=== PATIENT | female | born 1980 | race Caucasian/White ===

== ENCOUNTER 2023-11-20 20:04 | Emergency (ER) | payer MEDICAID, SELFPAY ==
[2023-11-20 20:08] VITALS: BP 155/97; PULSE 108; TEMP 37.3; O2SAT 100; BMI 39.0
[2023-11-20] MEDS: TIZANIDINE HCL 4 MG TABLET PO (21:00)
[2023-11-20] MEDS: LIDOCAINE 5% PATCH 1 PATCH TOPICAL (21:00)
[2023-11-20] MEDS: MORPHINE SULFATE 4 MG/ML VIAL IM (21:01)
[2023-11-20 21:22] VITALS: BP 137/92; PULSE 87; O2SAT 100
--- NOTE | 2023-11-20 21:50 | ED_ITS ---
HPI HPI - Back Pain/Injury General Chief Complaint: Back Pain/Injury Stated Complaint: Lower Pain Time Seen by Provider: 11/20/23 20:25 Source: patient and family Mode of arrival: Wheelchair Limitations: physical limitation History of Present Illness HPI Narrative: 43-year-old female presents to the emergency department with complaint of right buttock pain with radiation going down her leg. Has had ongoing problems with sciatica. Recent MRI showed bulging disc near nerve. Was referred to pain management and physical therapy. Today, went to urgent care and was started on steroid medicines. Tonight, while taking a shower, she lifted her leg to wash it when she had acute worsening of the pain bringing her to tears. Pain worse with palpation, movement. Denies any blunt trauma, motor or sensory changes, paresthesias, loss of bowel or bladder control, saddle anesthesias, fevers, history of IV drug use. Quality:?sharp, shooting Severity:?severe Timing:?as above, constant Context: Normal setting and activity? Modifying factors:?as above Associated symptoms: as above Related Data Home Medications ?Medication ?Instructions ?Recorded ?Confirmed ferrous sulfate 325 mg (65 mg mg 11/20/23 iron) tablet gabapentin 100 mg capsule mg 11/20/23 Previous Rx's ?Medication ?Instructions ?Recorded lidocaine 5 % topical patch 1 patch topical DAILY PRN pain #15 11/20/23 (Lidoderm) ea oxycodone-acetaminophen 5 mg-325 1 tab PO Q8H PRN pain 3 days #8 11/20/23 mg tablet (Percocet) tabs tizanidine 4 mg capsule 4 mg PO Q8H PRN muscle spasticity 11/20/23 #14 caps Allergies Allergy/AdvReac Type Severity Reaction Status Date / Time No Known Drug Allergies Allergy Verified 11/20/23 20:23 Opioid HPI Opioid Management Most Recent Opioid Data: 2 Last Pain Scale 8 11/20/23 21:23 Last ED Pain Assessment 11/20/23 21:23 Review of Systems ROS Narrative CONST: Denies fever, chills GI: Denies abd pain, nausea, loss of bowel control : Denies loss of bladder control, hematuria MS: + back pain, myalgias.? Denies arthralgia SKIN: Denies color change, swelling NEURO: Denies numbness, paresthesias, weakness Exam Narrative Exam Narrative: Vital signs noted Nurses notes reviewed CONST: Nontoxic, well appearing, well nourished, in no distress.? No diaphoresis.?? HENT: normocephalic, atraumatic, CV: 2+ palpable DP pulses bilat GI: soft, nontender : no CVA tenderness MS: + acutely tender over the right buttock. No spinous process or paraspinal muscle tenderness throughout L-S region.? No tenderness over the SI joint.? There is no discoloration, edema, crepitus, instability, step off.? Straight leg raises were negative bilaterally.? No foot drop.? DF, PF, hallux DF equal and strong bilat NEURO: sensory intact, 2+ Patella and Achilles reflexes SKIN: no rash, erythema, warm, dry PSYCHIATRIC: normal mood, affect Constitutional Vital Signs, click to edit/add: Last Vital Signs Temp 99.1 F 11/20/23 20:08 Pulse 87 11/20/23 21:22 Resp 17 11/20/23 21:22 BP 137/92 H 11/20/23 21:22 Pulse Ox 100 11/20/23 21:22 O2 Del Method Room Air 11/20/23 20:08 Course Vital Signs Vital signs: Vital Signs Temperature 99.1 F 11/20/23 20:08 Pulse Rate 108 H 11/20/23 20:08 Respiratory Rate 20 11/20/23 20:08 Blood Pressure 155/97 H 11/20/23 20:08 Pulse Oximetry 100 11/20/23 20:08 Oxygen Delivery Method Room Air 11/20/23 20:08 Temperature 99.1 F 11/20/23 20:08 Pulse Rate 87 11/20/23 21:22 Respiratory Rate 17 11/20/23 21:22 Blood Pressure 137/92 H 11/20/23 21:22 Pulse Oximetry 100 11/20/23 21:22 Oxygen Delivery Method Room Air 11/20/23 20:08 MDM - Back Pain/Injury MDM Narrative Medical decision making narrative: This is a pleasant 43-year-old female presents to the emergency department with with complaint of sciatic nerve pain. Acute exacerbation while she was showering this evening. Was started on steroid this morning through urgent care. On arrival, afebrile, vital signs are stable. Exam, nontoxic, uncomfortable appearing patient in no gross distress. She has tenderness to the right buttock. No focal neurologic deficits on exam. No red flags. History and record review Discussion with independent historian: Spouse Favor sciatica Cauda equina less likely based on history and physical exam. No focal weakness, incontinence Epidural abscess less likely based on history and physical exam. No history of IV drug use Reevaluation: Clinically improved and feeling better after Treatment: During ED course Disposition ? The patient was discharged. Plan: Patient will be discharged to home. Condition at time of disposition: stable She was sent home with prescription for Percocet, tizanidine, Lidoderm patches. Already has steroid tapering pack at home Advised to follow up with primary provider. Advised to return for any worsening and/or development of new, concerning signs or symptoms PLEASE NOTE: Portions of the medical record may have been produced using electronic paint technician and may contain errors with respect to translation of words which may not have been identified prior to finalization of the chart. Medical Records Attestation: I reviewed the patient's medical records. Discharge Plan Discharge Chief Complaint: Back Pain/Injury Clinical Impression: Sciatica of right side Patient Disposition: Home, Self-Care Time of Disposition Decision: 22:00 Mode of Transportation: Private Vehicle Prescriptions / Home Meds: New oxycodone-acetaminophen [Percocet] 5-325 mg tablet 1 tab PO Q8H PRN (Reason: pain) 3 Days Qty: 8 0RF tizanidine 4 mg capsule 4 mg PO Q8H PRN (Reason: muscle spasticity) Qty: 14 0RF lidocaine [Lidoderm] 5 % adhesive patch,medicated 1 patch topical DAILY PRN (Reason: pain) Qty: 15 0RF Rx Instructions: leave on most painful area for up to 12 hrs No Action ferrous sulfate 325 mg (65 mg iron) tablet gabapentin 100 mg capsule Print Language: Azeri Instructions: Sciatica (ED) Referrals: DIPESH PETE [Primary Care Provider] - 1 week
[2023-11-20 21:56] VITALS: BP 122/77; PULSE 80; O2SAT 99
[2023-11-20] MEDS: OXYCODONE HCL/ACETAMINOPHEN 5MG/325MG 1 TAB PO (22:03)
[2023-11-20] MEDS: PREDNISONE 20 MG TABLET 60 MG PO (22:03)
[2023-11-20 22:31] VITALS: BP 123/75; PULSE 82; O2SAT 99
== END 2023-11-20 22:58 | disposition home or self-care (01) ==
PROVIDERS: Emergency Provider Emergency Medicine; PCP Family Medicine
DX: M54.31 Sciatica, right side (principal)
CPT/HCPCS: 96372; 99285; J2270; J7512